=== PATIENT | female | born 1950 | race Caucasian/White ===

== ENCOUNTER 2017-05-19 10:11 | Emergency (ER) | payer MEDICARE, BC ==
[2017-05-19] MEDS ORDERED: Albuterol/Ipratropium 3.0-0.5 MG/3 ML Neb Soln NEB ONE (11:15)
[2017-05-19] MEDS ORDERED: predniSONE 20 MG Tab PO ONE (13:00)
--- NOTE | 2017-05-19 13:54 | EDM.PDOC ---
ED HPI GENERAL MEDICAL PROBLEM - General Chief Complaint: Respiratory Problem Stated Complaint: SOB/BREATHING ISSUES Time Seen by Provider: 05/19/17 11:06 Source of Information: Reports: Patient History Limitations: Reports: No Limitations - History of Present Illness INITIAL COMMENTS - FREE TEXT/NARRATIVE: This patient complains of increasing shortness of breath over the past few days. She has a history of asthma and has an albuterol nebulizer but it didn't seem to be helping. Later she noted that she was either out or about out of the albuterol. This morning her temp was up to 102.4. She's had a flu shot and Pneumovax. She denies any kind of heart disease but she has had some carotid disease. - Related Data Allergies Allergy/AdvReac Type Severity Reaction Status Date / Time No Known Allergies Allergy Verified 05/19/17 10:50 Home Meds: Home Meds Albuterol Sulfate [Ventolin Hfa] 2 puff IN Q4HR PRN 05/19/17 [History] Aspirin [Ecotrin] 81 mg PO DAILY 05/19/17 [History] Estradiol [Climara] 1 patch TOP ASDIRECTED 05/19/17 [History] Fluticasone Propionate [Flonase] 1 puff NASBOTH ASDIRECTED 05/19/17 [History] Ipratropium/Albuterol Sulfate [Iprat-Albut 0.5-3(2.5) mg/3 ml] 3 ml PO QID 05/19 [History] Lisinopril [Lisinopril] 10 mg PO DAILY 05/19/17 [History] Mirtazapine [Mirtazapine] 30 mg PO BEDTIME 05/19/17 [History] Montelukast Sodium [Montelukast Sodium] 10 mg PO BEDTIME 05/19/17 [History] Theophylline [Theophylline Anhydrous] 300 mg PO DAILY 05/19/17 [History] Venlafaxine HCl [Venlafaxine ER] 225 mg PO DAILY 05/19/17 [History] atorvaSTATin Calcium [Atorvastatin Calcium] 40 mg PO DAILY 05/19/17 [History] Past Medical History Cardiovascular History: Reports: Other (See Below) 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, 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, 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 History: Reports: Fracture Neurological History: Reports: CVA Oncologic (Cancer) History: Reports: Basal Cell Carcinoma, Malignant Melanoma - Past Surgical History HEENT Surgical History: Reports: Cataract Surgery Cardiovascular Surgical History: Reports: Carotid Stents GI Surgical History: Reports: Appendectomy Female Surgical History: Reports: Hysterectomy Musculoskeletal Surgical History: Reports: Other (See Below) Other Musculoskeletal Surgeries/Procedures:: titanium darnell placed in left leg Oncologic Surgical History: Reports: Biopsy of Breast Social & Family History - Tobacco Use Smoking Status *Q: Never Smoker - Caffeine Use Caffeine Use: Reports: Coffee - Alcohol Use Days Per Week of Alcohol Use: 2 Number of Drinks Per Day: 7 Total Drinks Per Week: 14 - Recreational Drug Use Recreational Drug Use: No ED ROS GENERAL - Review of Systems Review Of Systems: See Below Constitutional: Reports: Fever, Chills HEENT: Reports: No Symptoms Respiratory: Reports: Shortness of Breath, Wheezing, Cough Cardiovascular: Reports: No Symptoms Endocrine: Reports: No Symptoms GI/Abdominal: Reports: No Symptoms : Reports: No Symptoms Musculoskeletal: Reports: No Symptoms Skin: Reports: No Symptoms Neurological: Reports: No Symptoms Psychiatric: Reports: No Symptoms ED EXAM, GENERAL - Physical Exam Exam: See Below Exam Limited By: No Limitations General Appearance: Alert, WD/WN, Mild Distress Eye Exam: Bilateral Eye: Normal Inspection Throat/Mouth: Normal Inspection Head: Atraumatic Neck: Supple, Other (No stridor) Respiratory/Chest: Respiratory Distress (Mild respiratory distress. Wheezing in all lung bolton air movement pretty much preserved), Prolonged Expiration Cardiovascular: Regular Rate, Rhythm, No Murmur GI/Abdominal: Non-Tender Back Exam: Normal Inspection Extremities: Normal Inspection, No Pedal Edema Neurological: Alert, Oriented Psychiatric: Normal Affect Skin Exam: Warm, Dry Course - Vital Signs Last Recorded V/S: Last Vital Signs Temp 37.5 C 05/19/17 10:56 Pulse 112 H 05/19/17 10:56 Resp 22 H 05/19/17 10:56 BP 189/87 H 05/19/17 10:56 Pulse Ox 92 L 05/19/17 10:56 - Orders/Labs/Meds Orders: Active Orders 24 hr Category Date Time Status EKG Documentation Completion [RC] ASDIRECTED Care 05/19/17 11:15 Active RT Aerosol Therapy [RC] ASDIRECTED Care 05/19/17 11:15 Active Chest 2V [CR] Urgent Exams 05/19/17 11:14 Taken EKG 12 Lead [EK] Urgent Ther 05/19/17 11:14 Ordered Labs: Laboratory Tests 05/19/17 05/19/17 Range/Units 11:20 11:20 WBC 8.1 (4.5-11.0) K/uL RBC 4.87 (3.30-5.50) M/uL Hgb 14.3 (12.0-15.0) g/dL Hct 43.6 (36.0-48.0) % MCV 90 (80-98) fL MCH 29 (27-31) pg MCHC 33 (32-36) % Plt Count 239 (150-400) K/uL Neut % (Auto) 68 H (36-66) % Lymph % (Auto) 18 L (24-44) % [place] % (Auto) 14 H (2-6) % Eos % (Auto) 0 L (2-4) % Baso % (Auto) 0 (0-1) % Sodium 136 L (140-148) mmol/L Potassium 3.8 (3.6-5.2) mmol/L Chloride 97 L (100-108) mmol/L Carbon Dioxide 27 (21-32) mmol/L Anion Gap 15.8 H (5.0-14.0) mmol/L BUN 12 (7-18) mg/dL Creatinine 0.9 (0.6-1.0) mg/dL Est Cr Clr Drug Dosing 48.80 mL/min Estimated GFR (MDRD) > 60 (>60) Glucose 109 H (74-106) mg/dL Calcium 9.2 (8.5-10.1) mg/dL Total Bilirubin 0.4 (0.2-1.0) mg/dL AST 32 (15-37) U/L ALT 30 (12-78) U/L Alkaline Phosphatase 143 H (46-116) U/L Total Protein 8.0 (6.4-8.2) g/dL Albumin 4.0 (3.4-5.0) g/dL Globulin 4.0 H (2.3-3.5) g/dL Albumin/Globulin Ratio 1.0 L (1.2-2.2) Meds: Medications Discontinued Medications Generic Name Dose Route Start Last Admin Trade Name Freq PRN Reason Stop Dose Admin Albuterol/Ipratropium 3 ml 05/19/17 11:15 05/19/17 11:23 Duoneb 3.0-0.5 Mg/3 Ml NEB 05/19/17 11:16 3 ml ONETIME ONE Administration Prednisone 40 mg 05/19/17 13:00 05/19/17 13:18 Prednisone PO 05/19/17 13:01 40 mg ONETIME ONE Administration - Radiology Interpretation Free Text/Narrative:: Chest x-ray showed no evidence of infiltrate. Looks like an old healed rib fracture on the right. No old x-rays available - Re-Assessments/Exams Free Text/Narrative Re-Assessment/Exam: 05/19/17 18:35 This patient received a DuoNeb nebulizer treatment and prednisone 40 mg orally. Afterwards she felt much better and there was much less wheezing although she did had not completely cleared. Labs were done. Because we have had quite a bit of influenza in the area I think it is salas to go ahead and treat this lady with Tamiflu and also cover her with an antibiotic and oral steroids. Departure - Departure Time of Disposition: 13:52 Disposition: Home, Self-Care 01 Condition: Fair Clinical Impression: Asthmatic bronchitis with acute exacerbation - Discharge Information Instructions: Acute Bronchitis, [id number] Referrals: Lizett Gómez MD [Primary Care Provider] - Forms: ED Department Discharge Additional Instructions: You appear to have an asthma attack along with bronchitis. There is a small possibility that you could actually have influenza even though the flu test was negative and you've had a flu shot. Influenza is so serious that I'm going to put you on the flu medication just in case. Therefore take Tamiflu 75 mg twice daily for 5 days area Continue all of your usual medications. Take prednisone as directed. Also take the antibiotic Cipro 500 mg twice daily for 10 days. If you feel like you're getting worse than return to the ER at any time - My Orders Last 24 Hours: My Active Orders 05/19/17 11:14 Chest 2V [CR] Urgent EKG 12 Lead [EK] Urgent 05/19/17 11:15 EKG Documentation Completion [RC] ASDIRECTED RT Aerosol Therapy [RC] ASDIRECTED - Assessment/Plan Last 24 Hours: My Active Orders 05/19/17 11:14 Chest 2V [CR] Urgent EKG 12 Lead [EK] Urgent 05/19/17 11:15 EKG Documentation Completion [RC] ASDIRECTED RT Aerosol Therapy [RC] ASDIRECTED
--- NOTE | 2017-05-21 09:26 | CR ---
Heart size within normal limits. Old right rib fractures. Focal hazy nodular density right midlung zo ne. No pneumothorax or focal consolidation. Degenerative changes of the spine. Impression: 1. Focal hazy nodular density right midlung zone. Findings can indicate focal pneumonitis. Recommend radiographic follow-up short-term for clearing if this persist recommend CT noncontrast follow-up to exclude a pulmonary nodule.
== END 2017-05-19 14:15 | disposition home or self-care (01) ==
LOC: JP.ED 10:11
DX: J45.901 Unspecified asthma with (acute) exacerbation (principal); Z79.82 Long term (current) use of aspirin; Z79.899 Other long term (current) drug therapy
CPT/HCPCS: 36415; 71020; 80053; 85025; 87804; 93005; 94640; 99285; A9270; J7620; 93010; 99284

== ENCOUNTER 2017-11-25 06:15 | Day surgery (SDC) | payer MEDICARE, BC ==
[~2017-11-25 06:15] MED LIST: Lactated Ringers 1,000 ML IV SCH
[2017-11-25] MEDS ORDERED: Propofol 200 MG/20 ML SDV ONE ×2 (07:23→08:06)
[2017-11-25] MEDS ORDERED: fentaNYL 100 MCG/2 ML SDV ONE (07:23)
[2017-11-25] MEDS ORDERED: Midazolam 1 MG/ML 2 ML SDV ONE (07:23)
[2017-11-25] MEDS ORDERED: Ondansetron 4 MG/2 ML SDV ONE (07:24)
[2017-11-25] MEDS ORDERED: Lidocaine 1% 50 ML MDV ONE (07:52)
[2017-11-25] MEDS ORDERED: Bupivacaine 0.5%/EPINEPHrine 1:200,000 50 ML MDV ONE (07:52)
--- NOTE | 2017-11-25 12:16 | OR ---
DATE OF PROCEDURE: 11/25/2017 PREOPERATIVE DIAGNOSES: 1. Positive FIT test. 2. Prominent external hemorrhoid at 3 o'clock with 12 o'clock posterior. POSTOPERATIVE DIAGNOSES: 1. Pandiverticulosis. 2. Sessile right colon polyp. 3. Prominent external hemorrhoid at 3 o'clock with 12 o'clock posterior. PROCEDURE: Colonoscopy to the cecum with biopsy resection of sessile right colon polyp and tattoo of site, and hemorrhoidectomy. SURGEON: Warren Mcdaniels MD. ANESTHESIA: IV anesthesia with monitored anesthesia care. INDICATION: This 67-year-old white female is referred for a colonoscopy. She has a positive FIT test. She says her last colonoscopic exam was done 10 years ago. Also, she says she has a prominent hemorrhoid, which bothers her. She would like to have it excised. I counseled her for the procedure including risks, alternatives, and she gave her informed consent to proceed. DESCRIPTION OF PROCEDURE: The patient was placed in the left lateral decubitus position. IV anesthesia was administered by the Anesthesia Service. Time-out was held. A rectal exam was performed. The prominent hemorrhoid was seen at 3 o'clock with 12 o'clock being posterior. Otherwise, rectal exam was unremarkable. The flexible video Olympus colonoscope was introduced through her anus, up her rectum out her colon all the way to the cecum, en route, we saw multiple both right and left-sided diverticula. There was no bleeding or inflammation associated with any of them. Once the cecum was reached, the scope was slowly withdrawn examining the mucosa throughout. In the right colon, we saw a sessile polyp. This was removed with multiple bites of the biopsy forceps. We did tattooed this area with Sada ink. The scope was withdrawn further with no other neoplastic lesions seen. Multiple diverticula again were noted. The scope was retroflexed in the rectum with the distal rectum appearing unremarkable. The scope was then removed. Next, her anal and perianal area were prepped and draped in usual sterile fashion. Lidocaine 1% plain in a 50:50 mix with 0.5% Marcaine with epinephrine was infiltrated about the hemorrhoid. The hemorrhoid was grasped and elevated. A stitch was placed medially. The hemorrhoid was then excised, the stitch of 3-0 Chromic was then used to close the incision. A sterile dressing was applied. She tolerated the procedure well, and was brought to recovery room in good condition. Warren Mcdaniels MD /[id number]
== END 2017-11-25 10:00 | disposition home or self-care (01) ==
LOC: JP.SDS 06:15
PROVIDERS: ATTEND Surgery
DX: R19.5 Other fecal abnormalities (principal); D12.2 Benign neoplasm of ascending colon; K57.30 Diverticulosis of large intestine without perforation or abscess without bleeding; K64.4 Residual hemorrhoidal skin tags; K62.89 Other specified diseases of anus and rectum; I10 Essential (primary) hypertension; J45.909 Unspecified asthma, uncomplicated; E78.5 Hyperlipidemia, unspecified
CPT/HCPCS: 45380; 45381; 46999; J2250; J2405; J2704; J3010; J7120

== ENCOUNTER 2018-12-01 06:27 | Day surgery (SDC) | payer BC, MEDICARE ==
[2018-12-01] MEDS ORDERED: Midazolam 1 MG/ML 2 ML SDV ONE (07:10)
[2018-12-01] MEDS ORDERED: Propofol 200 MG/20 ML SDV ONE (07:10)
[2018-12-01] MEDS ORDERED: fentaNYL 100 MCG/2 ML SDV ONE (07:10)
[2018-12-01] MEDS ORDERED: Ondansetron 4 MG/2 ML SDV ONE (07:24)
[2018-12-01] MEDS ORDERED: Lactated Ringers 1,000 ML IV SCH (07:30)
--- NOTE | 2018-12-02 08:18 | OR ---
DATE OF PROCEDURE: 12/01/2018 PREOPERATIVE DIAGNOSES: History of sessile tubular adenoma, diverticulosis. POSTOPERATIVE DIAGNOSES: History of sessile tubular adenoma, diverticulosis. No evidence of recurrent sessile tubular adenoma. PROCEDURE: Colonoscopy to the cecum. SURGEON: Warren Mcdaniels MD ANESTHESIA: IV anesthesia with monitored anesthesia care. INDICATION: This 68-year-old white female is here for a colonoscopy. She underwent a colonoscopy last year with a sessile polyp seen in her right colon. It returned a sessile serrated adenoma. This was removed and the area was tattooed. Additionally, she was found to have diverticulosis. I counseled her for a colonoscopy with possible biopsy and/or polypectomy, including risks and alternatives, and she gave her informed consent to proceed. DESCRIPTION OF PROCEDURE: The patient was placed in the left lateral decubitus position. IV anesthesia was administered by the Anesthesia Service. Time-out was held. A rectal exam was performed, which was unremarkable. The flexible video Olympus colonoscope was introduced through her anus, up her rectum, and out her colon all way to the cecum. En route, we saw multiple both right and left-sided diverticula. Also, we saw the area that was tattooed. Once the cecum was reached, the scope was slowly withdrawn examining the mucosa throughout. We then again examined the area that was tattooed in the right colon, and there was no evidence of a persistent or recurrent polyp. The scope was withdrawn further with no other new lesions noted. The scope was retroflexed in the rectum with the distal rectum appearing unremarkable. The scope was straightened and removed. She tolerated the procedure well. Repeat colonoscopy in 5 years. Warren Mcdaniels MD /[id number]
== END 2018-12-01 09:00 | disposition home or self-care (01) ==
LOC: JP.SDS 06:27
PROVIDERS: ATTEND Surgery
DX: Z09 Encounter for follow-up examination after completed treatment for conditions other than malignant neoplasm (principal); K57.30 Diverticulosis of large intestine without perforation or abscess without bleeding; I10 Essential (primary) hypertension; E78.5 Hyperlipidemia, unspecified; J45.909 Unspecified asthma, uncomplicated; Z86.73 Personal history of transient ischemic attack (TIA), and cerebral infarction without residual deficits; Z86.010 Personal history of colon polyps
CPT/HCPCS: 45378; J2250; J2405; J2704; J3010; J7120

== ENCOUNTER 2019-02-16 08:27 | Emergency (ER) | payer MEDICARE ==
[2019-02-16] MEDS ORDERED: Albuterol/Ipratropium 3.0-0.5 MG/3 ML Neb Soln NEB ONE (08:57)
--- NOTE | 2019-02-16 09:03 | EDM.PDOC ---
ED HPI GENERAL MEDICAL PROBLEM - General Chief Complaint: Respiratory Problem Stated Complaint: ASTHMA, SOB Time Seen by Provider: 02/16/19 08:50 Source of Information: Reports: Patient, Old Records, Provider History Limitations: Reports: No Limitations - History of Present Illness INITIAL COMMENTS - FREE TEXT/NARRATIVE: 69 yo female with asthma was referred to the ER today from the clinic for apparent asthma refractory to outpatient therapy. Has been having increased SOB/ wheezing since she was at the [facility] and was exposed to barbecue smoke. Has been on steroids orally for the past 17 days, more recently on 40 mg daily. Last used her nebulizer last night. Used her MDI this morning of albuterol. Has not had a fever. Onset: Gradual Onset Date: 01/30/19 Duration: Week(s):, Constant Location: Reports: Chest Quality: Reports: Other (no pain) Severity: Moderate Improves with: Reports: Medication Worsens with: Reports: Other (smoke exposure) Context: Reports: Other (see HPI) Associated Symptoms: Reports: Cough, Shortness of Breath. 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) (albuterol MDI) - Related Data Allergies Allergy/AdvReac Type Severity Reaction Status Date / Time No Known Allergies Allergy Verified 02/16/19 08:43 Home Meds: Home Meds Albuterol Sulfate [Ventolin Hfa] 2 puff IN Q6HR PRN 05/19/17 [History] Aspirin [Ecotrin EC] 81 mg PO DAILY 05/19/17 [History] Fluticasone Propionate [Flonase] 1 puff NASBOTH ASDIRECTED 05/19/17 [History] Ipratropium/Albuterol Sulfate [Iprat-Albut 0.5-3(2.5) mg/3 ml] 3 ml PO QID 05/19 [History] Lisinopril 10 mg PO DAILY 05/19/17 [History] Mirtazapine 30 mg PO BEDTIME 05/19/17 [History] Montelukast Sodium 10 mg PO BEDTIME 05/19/17 [History] Theophylline [Theophylline Anhydrous] 300 mg PO DAILY 05/19/17 [History] Venlafaxine HCl [Venlafaxine ER] 150 mg PO DAILY 05/19/17 [History] atorvaSTATin Calcium [Atorvastatin Calcium] 40 mg PO DAILY 05/19/17 [History] Gabapentin [Neurontin] 300 mg PO BEDTIME 11/21/17 [History] cloNIDine [Catapres-TTS 1] 1 patch TOP WEEKLY 11/21/17 [History] Allopurinol [Zyloprim] 300 mg PO DAILY 11/28/18 [History] Cholecalciferol (Vitamin D3) [Decara] 50,000 unit PO WEEKLY 11/28/18 [History] Fluticasone/Salmeterol [Advair 250-50 Diskus] 1 puff IH BID 02/16/19 [History] predniSONE 40 mg PO DAILY 02/16/19 [History] Past Medical History HEENT History: Reports: Cataract Cardiovascular History: Reports: Other (See Below) Other Cardiovascular History: angioplasty 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, 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, 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: Reports: Fracture Neurological History: Reports: CVA Oncologic (Cancer) History: Reports: Basal Cell Carcinoma, Malignant Melanoma Dermatologic History: Reports: Melanoma - Infectious Disease History Infectious Disease History: Reports: Chicken Pox - Past Surgical History HEENT Surgical History: Reports: Cataract Surgery Cardiovascular Surgical History: Reports: Carotid Endarterectomy, Carotid Stents GI Surgical History: Reports: Appendectomy, Colonoscopy Female Surgical History: Reports: Hysterectomy Musculoskeletal Surgical History: Reports: Other (See Below) Other Musculoskeletal Surgeries/Procedures:: titanium darnell placed in left leg also left wrist Oncologic Surgical History: Reports: Biopsy of Breast Social & Family History - Tobacco Use Smoking Status *Q: Former Smoker Used Tobacco, but Quit: Yes Month/Year Tobacco Last Used: 25 years - Caffeine Use Caffeine Use: Reports: None - Recreational Drug Use Recreational Drug Use: No ED ROS GENERAL - Review of Systems Review Of Systems: See Below Constitutional: Reports: No Symptoms HEENT: Reports: No Symptoms Respiratory: Reports: Shortness of Breath, Cough. Denies: Wheezing, Sputum, Hemoptysis Cardiovascular: Reports: No Symptoms GI/Abdominal: Reports: No Symptoms : Reports: No Symptoms Musculoskeletal: Reports: No Symptoms Skin: Reports: No Symptoms Neurological: Reports: No Symptoms Psychiatric: Reports: No Symptoms ED EXAM, GENERAL - Physical Exam Exam: See Below Exam Limited By: No Limitations General Appearance: Alert, WD/WN, No Apparent Distress Eye Exam: Bilateral Eye: Normal Inspection Ears: Normal External Exam, Normal Canal, Hearing Grossly Normal, Normal TMs Ear Exam: Bilateral Ear: Auricle Normal, Canal Normal, TM normal Nose: Normal Inspection, Normal Mucosa, No Blood Throat/Mouth: Normal Inspection, Normal Lips, Normal Oropharynx, Normal Voice, No Airway Compromise Head: Atraumatic, Normocephalic Neck: Normal Inspection Respiratory/Chest: No Respiratory Distress, No Accessory Muscle Use, Wheezing Cardiovascular: Regular Rate, Rhythm, No Edema GI/Abdominal: Soft Back Exam: Normal Inspection Extremities: Normal Inspection, Normal Range of Motion, Non-Tender, No Pedal Edema Neurological: Alert, Oriented, CN II-XII Intact, Normal Cognition, No Motor/ Sensory Deficits Psychiatric: Normal Affect, Normal Mood Skin Exam: Warm, Dry, Intact, Normal Color, No Rash Course - Vital Signs Last Recorded V/S: Last Vital Signs Temp 35.7 C 02/16/19 08:59 Pulse 113 H 02/16/19 10:06 Resp 15 02/16/19 10:06 BP 191/98 H 02/16/19 10:06 Pulse Ox 95 02/16/19 10:06 - Orders/Labs/Meds Orders: Active Orders 24 hr Category Date Time Status RT Aerosol Therapy [RC] ASDIRECTED Care 02/16/19 08:57 Active Sodium Chloride 0.9% [Saline Flush] Med 02/16/19 10:12 Active 10 ml FLUSH ASDIRECTED PRN Saline Lock Insert [OM.PC] Routine Oth 02/16/19 10:12 Ordered Medication Orders Sodium Chloride (Saline Flush) 10 ml FLUSH ASDIRECTED PRN PRN Reason: Keep Vein Open Last Admin: 02/16/19 10:20 Dose: 10 ml Labs: Laboratory Tests 02/16/19 02/16/19 02/16/19 Range/Units 09:04 09:04 09:04 WBC 14.6 H (4.5-11.0) K/uL RBC 4.59 (3.30-5.50) M/uL Hgb 13.9 (12.0-15.0) g/dL Hct 43.4 (36.0-48.0) % MCV 95 (80-98) fL MCH 30 (27-31) pg MCHC 32 (32-36) % Plt Count 359 (150-400) K/uL D-Dimer, Quantitative < 100 (0.0-400.0) ng/mL Sodium 140 (140-148) mmol/L Potassium 3.9 (3.6-5.2) mmol/L Chloride 99 L (100-108) mmol/L Carbon Dioxide 30 (21-32) mmol/L Anion Gap 14.9 H (5.0-14.0) mmol/L BUN 17 (7-18) mg/dL Creatinine 1.1 H (0.6-1.0) mg/dL Est Cr Clr Drug Dosing TNP Estimated GFR (MDRD) 49 L (>60) Glucose 108 H (74-106) mg/dL Calcium 9.4 (8.5-10.1) mg/dL Troponin I < 0.017 (0.000-0.056) ng/mL C-Reactive Protein 0.05 (0.0-0.3) mg/dL Meds: Medications Generic Name Dose Route Start Last Admin Trade Name Freq PRN Reason Stop Dose Admin Sodium Chloride 10 ml 02/16/19 10:12 02/16/19 10:20 Saline Flush FLUSH 10 ml ASDIRECTED PRN Administration Keep Vein Open Discontinued Medications Generic Name Dose Route Start Last Admin Trade Name Freq PRN Reason Stop Dose Admin Albuterol/Ipratropium 3 ml 02/16/19 08:57 02/16/19 09:30 Duoneb 3.0-0.5 Mg/3 Ml NEB 02/16/19 08:58 3 ml ONETIME ONE Administration Methylprednisolone Sodium Succinate 125 mg 02/16/19 10:09 02/16/19 10:19 Solu-Medrol IVPUSH 02/16/19 10:10 125 mg ONETIME ONE Administration - Radiology Interpretation Free Text/Narrative:: CXR-mild hyperaeration Departure - Departure Time of Disposition: 10:35 Disposition: Home, Self-Care 01 Condition: Fair Clinical Impression: Asthma exacerbation Qualifiers: Asthma severity: moderate Asthma persistence: persistent Qualified Code(s): J45.41 - Moderate persistent asthma with (acute) exacerbation - Discharge Information *PRESCRIPTION DRUG MONITORING PROGRAM REVIEWED*: No *COPY OF PRESCRIPTION DRUG MONITORING REPORT IN PATIENT JOVANNA: No Instructions: Asthma, Adult Referrals: Lizett Gómez MD [Primary Care Provider] - Forms: ED Department Discharge Additional Instructions: Continue your usual medications. Take prednisone next tomorrow. Recheck in the clinic later this week, return to the ER if worse. - My Orders Last 24 Hours: My Active Orders 02/16/19 08:57 RT Aerosol Therapy [RC] ASDIRECTED 02/16/19 10:12 Sodium Chloride 0.9% [Saline Flush] 10 ml FLUSH ASDIRECTED PRN Saline Lock Insert [OM.PC] Routine - Assessment/Plan Last 24 Hours: My Active Orders 02/16/19 08:57 RT Aerosol Therapy [RC] ASDIRECTED 02/16/19 10:12 Sodium Chloride 0.9% [Saline Flush] 10 ml FLUSH ASDIRECTED PRN Saline Lock Insert [OM.PC] Routine
--- NOTE | 2019-02-16 09:45 | CR ---
CHEST: 2 view CLINICAL HISTORY:Wheezing, SOB COMPARISON:2017 FINDINGS: Heart size and pulmonary vascularity are normal. No infiltrate effusion or pneumothorax seen. There are some healed fractures of right mid ribs. Lungs are mildly hyperaerated. Impression: Mild hyperaeration No acute cardiopulmonary process
[2019-02-16] MEDS ORDERED: methylPREDNISolone Sodium Succinate 125 MG/2 ML SDV IVPUSH ONE (10:09)
[2019-02-16] MEDS ORDERED: Sodium Chloride 0.9% 10 ML Syringe FLUSH PRN (10:12)
== END 2019-02-16 10:46 | disposition home or self-care (01) ==
LOC: JP.ED 08:27
DX: J45.41 Moderate persistent asthma with (acute) exacerbation (principal); Z79.82 Long term (current) use of aspirin; Z79.899 Other long term (current) drug therapy; Z86.73 Personal history of transient ischemic attack (TIA), and cerebral infarction without residual deficits; Z87.891 Personal history of nicotine dependence
CPT/HCPCS: 36415; 71046; 80048; 84484; 85027; 85379; 86140; 94640; 96374; 99285; J2930; 99284; J7620-GY

== ENCOUNTER 2019-03-15 13:35 | Emergency (ER) | payer MEDICARE ==
--- NOTE | 2019-03-15 14:07 | EDM.PDOC ---
ED HPI GENERAL MEDICAL PROBLEM - General Chief Complaint: Skin Complaint Stated Complaint: left hand is swollen Time Seen by Provider: 03/15/19 13:44 Source of Information: Reports: Patient History Limitations: Reports: No Limitations - History of Present Illness INITIAL COMMENTS - FREE TEXT/NARRATIVE: Dayan is a 69 year old female presents to the ED today with c/o left hand swelling and pain for the last several days. Patient denies any hx of trauma or injury. OTC pain medications somewhat helpful, was seen in clinic on Saturday , had a test for gout which patient reports was negative. Patient is right hand dominant. Patient does have a metal plate in left wrist from years ago when she sustained a wrist fracture. Patient denies any recent repetitive movements. Patient denies any fever/chills. Onset: Gradual Left Hand Pain Score (Numeric/FACES): 7 - Related Data Allergies Allergy/AdvReac Type Severity Reaction Status Date / Time No Known Allergies Allergy Verified 03/15/19 14:00 Home Meds: Home Meds Albuterol Sulfate [Ventolin Hfa] 2 puff IN Q6HR PRN 05/19/17 [History] Aspirin [Ecotrin EC] 81 mg PO DAILY 05/19/17 [History] Fluticasone Propionate [Flonase] 1 puff NASBOTH ASDIRECTED 05/19/17 [History] Ipratropium/Albuterol Sulfate [Iprat-Albut 0.5-3(2.5) mg/3 ml] 3 ml PO QID 05/19 [History] Lisinopril 20 mg PO DAILY 05/19/17 [History] Mirtazapine 30 mg PO BEDTIME 05/19/17 [History] Montelukast Sodium 10 mg PO BEDTIME 05/19/17 [History] Theophylline [Theophylline Anhydrous] 300 mg PO BID 05/19/17 [History] Venlafaxine HCl [Venlafaxine ER] 225 mg PO DAILY 05/19/17 [History] atorvaSTATin Calcium [Atorvastatin Calcium] 40 mg PO DAILY 05/19/17 [History] Gabapentin [Neurontin] 300 mg PO BEDTIME 11/21/17 [History] cloNIDine [Catapres-TTS 1] 1 patch TOP WEEKLY 11/21/17 [History] Allopurinol [Zyloprim] 300 mg PO DAILY 11/28/18 [History] Budesonide [Pulmicort] 1 dose INH BID 03/15/19 [History] Omeprazole 1 tab PO DAILY 03/15/19 [History] Past Medical History HEENT History: Reports: Cataract Cardiovascular History: Reports: Other (See Below) Other Cardiovascular History: angioplasty 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, Bronchitis, 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: Musculoskeletal History: Reports: Fracture Neurological History: Reports: CVA Oncologic (Cancer) History: Reports: Basal Cell Carcinoma, Malignant Melanoma Dermatologic History: Reports: Melanoma - Infectious Disease History Infectious Disease History: Reports: Chicken Pox - Past Surgical History HEENT Surgical History: Reports: Cataract Surgery Cardiovascular Surgical History: Reports: Carotid Endarterectomy, Carotid Stents GI Surgical History: Reports: Appendectomy, Colonoscopy Female Surgical History: Reports: Hysterectomy Musculoskeletal Surgical History: Reports: Other (See Below) Other Musculoskeletal Surgeries/Procedures:: titanium darnell placed in left leg also left wrist Oncologic Surgical History: Reports: Biopsy of Breast Social & Family History - Tobacco Use Smoking Status *Q: Never Smoker - Caffeine Use Caffeine Use: Reports: None - Alcohol Use Days Per Week of Alcohol Use: 7 Number of Drinks Per Day: 3 Total Drinks Per Week: 21 - Recreational Drug Use Recreational Drug Use: No ED ROS GENERAL - Review of Systems Review Of Systems: ROS reveals no pertinent complaints other than HPI. ED EXAM, SKIN/RASH Exam: See Below Exam Limited By: No Limitations General Appearance: Alert, WD/WN, No Apparent Distress Nose: Normal Inspection Neck: Normal Inspection Respiratory/Chest: No Respiratory Distress Peripheral Pulses: 2+: Radial (L) Extremities: Normal Inspection, Other (left hand mildly swollen, dorsal aspect with tenderness to scaphoid region and positive Darrian test) Skin: Warm, Dry, Erythema (dorsal aspect of hand as well as wrist), Increased Warmth Course - Vital Signs Last Recorded V/S: Last Vital Signs Temp 37.7 C 03/15/19 14:12 Pulse 114 H 03/15/19 14:12 Resp 19 03/15/19 14:12 BP 143/77 H 03/15/19 14:12 Pulse Ox 97 03/15/19 14:12 Dayan is a 69 year old female, hx of gout, asthma, hypertension, high cholesterol presents to the ED today with c/o left hand and wrist pain for the last several days. Please refer to HPI and focused exam. Patient arrives mildly tachycardic and with low grade fever, given exam this could be cellulitic in nature, she recently had a normal uric acid but with her gout hx this is certainly on the differential. Patient's exam is consistent with de Quervain's tenosynovitis. Xray was obtained to rule out any occult fracture. Blood work obtained with low grade fever, white count returns normal. Patient given a dose of oxycodone here for pain. Basic panel returns with mild GAP, CRP elevated as well. Uric Acid normal. Xray negative for fracture. At this time I am going to put patient on a 5 day course of prednisone for tendonitis as well as a 7 day course of Keflex for cellulitis, patient was put in a velcro wrist with thumb splint and will follow up in clinic for re-evaluation at the end of the week. Patient can take Tylenol and Ibuprofen for pain, will discharge home with oxycodone as needed for severe pain. Narcotic safety and side effects discussed as well as reasons to return to the ED. Patient agreeable to plan of care and discharged in stable condition with her daughter driving. - Orders/Labs/Meds Labs: Laboratory Tests 03/15/19 03/15/19 03/15/19 Range/Units 14:32 14:32 14:32 WBC 8.4 (4.5-11.0) K/uL RBC 4.15 (3.30-5.50) M/uL Hgb 12.6 (12.0-15.0) g/dL Hct 39.1 (36.0-48.0) % MCV 94 (80-98) fL MCH 30 (27-31) pg MCHC 32 (32-36) % Plt Count 365 (150-400) K/uL Neut % (Auto) 61 (36-66) % Lymph % (Auto) 24 (24-44) % [place] % (Auto) 14 H (2-6) % Eos % (Auto) 2 (2-4) % Baso % (Auto) 0 (0-1) % Sodium 138 L (140-148) mmol/L Potassium 3.8 (3.6-5.2) mmol/L Chloride 101 (100-108) mmol/L Carbon Dioxide 26 (21-32) mmol/L Anion Gap 14.8 H (5.0-14.0) mmol/L BUN 13 (7-18) mg/dL Creatinine 1.0 (0.6-1.0) mg/dL Est Cr Clr Drug Dosing 40.81 mL/min Estimated GFR (MDRD) 55 L (>60) Glucose 135 H (74-106) mg/dL Uric Acid 4.3 (2.6-6.2) mg/dL Calcium 9.7 (8.5-10.1) mg/dL C-Reactive Protein 5.67 H (0.0-0.3) mg/dL Meds: Medications Discontinued Medications Generic Name Dose Route Start Last Admin Trade Name Freq PRN Reason Stop Dose Admin Oxycodone HCl 10 mg 03/15/19 14:19 03/15/19 14:58 Oxycodone PO 03/15/19 14:20 10 mg ONETIME ONE Administration Departure - Departure Time of Disposition: 15:30 Disposition: Home, Self-Care 01 Condition: Good Clinical Impression: Tendonitis Cellulitis Qualifiers: Site of cellulitis: extremity Site of cellulitis of extremity: upper extremity Laterality: left Qualified Code(s): L03.114 - Cellulitis of left upper limb - Discharge Information Instructions: Cellulitis, Adult, Tendinitis Referrals: Lizett Gómez MD [Primary Care Provider] - Forms: ED Department Discharge Additional Instructions: Ibuprofen/Tylenol for pain. Oxycodone for pain if needed. Do not drive if you take this. Start prednisone today and take as directed. Start Keflex today and take as directed. Follow up in clinic at the end of the week for re-check. Return here if symptoms worsen. Keep splint on throughout the week, elevate as much as possible.
[2019-03-15] MEDS ORDERED: oxyCODONE 5 MG Tab PO ONE (14:19)
--- NOTE | 2019-03-15 14:56 | CRLCR ---
INDICATION: Pain, swelling. TECHNIQUE: Three views. Comparison: None Findings: no fracture visible. No acute bony abnormality demonstrated. Metallic plate and screws within the distal dorsal radius. Osteopenia. Severe osteoarthritic narrowing at the STT joints. Radiocarpal alignment appears intact. Impression : No visualized acute fracture. Postoperative and chronic change as discussed. Dictated by Kraig Baires MD @ Mar 15 2019 2:50PM Signed by Dr. Kraig Baires @ Mar 15 2019 2:53PM
== END 2019-03-15 15:34 | disposition home or self-care (01) ==
LOC: JP.ED 13:35
DX: L03.114 Cellulitis of left upper limb (principal); M77.9 Enthesopathy, unspecified; J45.909 Unspecified asthma, uncomplicated; Z79.82 Long term (current) use of aspirin; Z79.899 Other long term (current) drug therapy
CPT/HCPCS: 36415; 73130; 80048; 84550; 85025; 86140; 99283; A9270

== ENCOUNTER 2020-01-15 20:04 | Emergency (ER) | payer MEDICARE ==
--- NOTE | 2020-01-15 20:19 | EDM.PDOC ---
ED HPI GENERAL MEDICAL PROBLEM - General Chief Complaint: Lower Extremity Injury/Pain Stated Complaint: FELL HURT RT ANKLE Time Seen by Provider: 01/15/20 20:15 Source of Information: Reports: Patient History Limitations: Reports: No Limitations - History of Present Illness INITIAL COMMENTS - FREE TEXT/NARRATIVE: 70-year-old female with a right ankle injury. 1 hour ago she got up, her right foot was asleep and he stepped wrong and heard a pop and now has significant bruising, swelling around the ankle with inability to bear weight. She is on prednisone currently. Onset: Sudden Duration: Hour(s): (1 hour ago) Location: Reports: Lower Extremity, Right Associated Symptoms: Reports: No Other Symptoms (No other injury, she does have chronic dyspnea) - Related Data Allergies Allergy/AdvReac Type Severity Reaction Status Date / Time No Known Allergies Allergy Verified 03/15/19 14:00 Home Meds: Home Meds Albuterol Sulfate [Ventolin Hfa] 2 puff IN Q6HR PRN 05/19/17 [History] Aspirin [Ecotrin EC] 81 mg PO DAILY 05/19/17 [History] Fluticasone Propionate [Flonase] 1 puff NASBOTH ASDIRECTED 05/19/17 [History] Ipratropium/Albuterol Sulfate [Iprat-Albut 0.5-3(2.5) mg/3 ml] 3 ml PO QID 05/19/17 [History] Lisinopril 20 mg PO DAILY 05/19/17 [History] Mirtazapine 30 mg PO BEDTIME 05/19/17 [History] Montelukast Sodium 10 mg PO BEDTIME 05/19/17 [History] Theophylline [Theophylline Anhydrous] 300 mg PO BID 05/19/17 [History] Venlafaxine HCl [Venlafaxine ER] 225 mg PO DAILY 05/19/17 [History] atorvaSTATin Calcium [Atorvastatin Calcium] 40 mg PO DAILY 05/19/17 [History] Gabapentin [Neurontin] 300 mg PO BEDTIME 11/21/17 [History] cloNIDine [Catapres-TTS 1] 1 mg PO BID 11/21/17 [History] allopurinoL [Zyloprim] 300 mg PO DAILY 11/28/18 [History] Budesonide [Pulmicort] 1 dose INH BID 03/15/19 [History] Omeprazole 1 tab PO DAILY 03/15/19 [History] Budesonide [Pulmicort] 2 ml INH BID 01/15/20 [History] predniSONE 20 mg PO ASDIRECTED 01/15/20 [History] Past Medical History HEENT History: Reports: Cataract Cardiovascular History: Reports: Other (See Below) Other Cardiovascular History: angioplasty 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, Bronchitis, 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 History: Reports: Fracture Neurological History: Reports: CVA Oncologic (Cancer) History: Reports: Basal Cell Carcinoma, Malignant Melanoma Dermatologic History: Reports: Melanoma - Infectious Disease History Infectious Disease History: Reports: Chicken Pox - Past Surgical History HEENT Surgical History: Reports: Cataract Surgery Cardiovascular Surgical History: Reports: Carotid Endarterectomy, Carotid Stents GI Surgical History: Reports: Appendectomy, Colonoscopy Female Surgical History: Reports: Hysterectomy Musculoskeletal Surgical History: Reports: Other (See Below) Other Musculoskeletal Surgeries/Procedures:: titanium darnell placed in left leg also left wrist Oncologic Surgical History: Reports: Biopsy of Breast Social & Family History - Caffeine Use Caffeine Use: Reports: None Review of Systems - Review of Systems Review Of Systems: See Below Constitutional: Denies: Fever Respiratory: Reports: Shortness of Breath (Shortness of breath is chronic with significant asthma) Cardiovascular: Denies: Chest Pain GI/Abdominal: Denies: Abdominal Pain, Vomiting Skin: Reports: Bruising (Bruising around the right ankle, she also tends to bruise easily) Psychiatric: Reports: No Symptoms ED EXAM, GENERAL - Physical Exam Exam: See Below Exam Limited By: No Limitations General Appearance: Alert, No Apparent Distress (Patient is uncomfortable but not acutely distressed) Head: Atraumatic Neck: Non-Tender Cardiovascular: Regular Rate, Rhythm Extremities: Other (Exam of the right lower extremity reveals a normal knee, she has exquisite tenderness to palpation around the ankle with significant swelling and ecchymosis around the medial and lateral ankle extending onto the top of the foot) Neurological: Alert, Oriented Skin Exam: Ecchymosis (There is significant ecchymosis around the right ankle) Course - Vital Signs Last Recorded V/S: Last Vital Signs Temp 98.6 F 01/15/20 20: Pulse 127 H 01/15/20 20: Resp 16 01/15/20 20: BP 179/75 H 01/15/20 20:21 Pulse Ox 96 01/15/20 20:21 - Orders/Labs/Meds Orders: Active Orders 24 hr Category Date Time Status Ankle Min 3V Rt [CR] Stat Exams 01/15/20 20:17 Taken DME for Discharge [COMM] Stat Oth 01/15/20 21:00 Ordered - Re-Assessments/Exams Free Text/Narrative Re-Assessment/Exam: 01/15/20 21:03 An x-ray of the foot show some osteoporosis but surprisingly no fracture. It is concerning that she has likely ligament disruption especially with her chronic steroid treatment. She will be placed in a cam walker and given crutches for the weekend, some extra pain control, but I think she should follow-up with Dr. Young next week for a podiatry consult. A formal consult was written. She will call Saturday for an appointment. Departure - Departure Time of Disposition: 21: Disposition: Home, Self-Care 01 Clinical Impression: Severe sprain of right ankle Qualifiers: Encounter type: initial encounter Qualified Code(s): S93.401A - Sprain of unspecified ligament of right ankle, initial encounter - Discharge Information Instructions: Ankle Sprain, [id number] Referrals: Vashti Potter PA-C [Primary Care Provider] - Forms: ED Department Discharge Care Plan Goals: Wear walking boot for support, elevate foot when able and take extra pain control if needed. Use crutches to help with ambulation, and call the clinic on Saturday to see Dr. Young for recheck. Sepsis Event Note (ED) - Focused Exam Vital Signs: Vital Signs Temp Pulse Resp BP Pulse Ox 01/15/20 20:21 98.6 F 127 H 16 179/75 H 96 01/15/20 20:16 98.6 F 127 H 16 179/75 H 96 - My Orders Last 24 Hours: My Active Orders 01/15/20 20:17 Ankle Min 3V Rt [CR] Stat 01/15/20 21:00 DME for Discharge [COMM] Stat - Assessment/Plan Last 24 Hours: My Active Orders 01/15/20 20:17 Ankle Min 3V Rt [CR] Stat 01/15/20 21:00 DME for Discharge [COMM] Stat
--- NOTE | 2020-01-18 09:35 | CR ---
Ankle Min 3V Rt CLINICAL HISTORY: Swelling no fracture FINDINGS: The soft tissues are swollen over the lateral malleolus. Ankle mortise is anatomic. There is a small ossific density overlying the distal medial aspect of the fibula. This may be a secondary ossification center. Small bony avulsion is not excluded. Impression: Lateral soft tissue swelling Small ossific density near the distal fibula could represent a small avulsion fracture
== END 2020-01-15 21:28 | disposition home or self-care (01) ==
LOC: JP.ED 20:04
DX: S93.401A Sprain of unspecified ligament of right ankle, initial encounter (principal); J45.909 Unspecified asthma, uncomplicated; Z79.899 Other long term (current) drug therapy; Z86.73 Personal history of transient ischemic attack (TIA), and cerebral infarction without residual deficits; X50.9XXA Other and unspecified overexertion or strenuous movements or postures, initial encounter
CPT/HCPCS: 73610-26-RT; 73610-RT; 99283; 99283-25

== ENCOUNTER 2021-06-02 08:54 | Day surgery (SDC) | payer MEDICARE ==
[~2021-06-02 08:54] MED LIST changes: -Lactated Ringers 1,000 ML IV SCH; +Lidocaine 1% 2 ML ONE; +Propofol 200 MG/20 ML SDV ONE; +fentaNYL 100 MCG/2 ML SDV ONE
[2021-06-02] MEDS ORDERED: Ondansetron 4 MG/2 ML SDV ONE (09:32)
[2021-06-02] MEDS ORDERED: Albuterol/Ipratropium 3.0-0.5 MG/3 ML Neb Soln NEB ONE (10:00)
[2021-06-02] MEDS ORDERED: Dextrose 5%-Lactated Ringers 1,000 ML IV SCH (10:00)
--- NOTE | 2021-06-04 12:30 | OR ---
DATE OF PROCEDURE: 06/02/2021 SURGEON: Iggy King MD PREOPERATIVE DIAGNOSIS: Mid epigastric pain. POSTOPERATIVE DIAGNOSIS: Mid epigastric pain associated with: 1. Small hiatal hernia with active gastroesophageal reflux disease. 2. Marked antral gastritis. PROCEDURE PERFORMED: Esophagogastroduodenoscopy with: 1. Biopsy of esophagogastric junction for histologic evaluation. 2. Biopsies of antrum for CLOtest. ANESTHESIA: IV sedation. INDICATION FOR PROCEDURE: This is a 71-year-old female presenting with some ongoing mid epigastric pain. She presently is on omeprazole 40 mg a day. The plan is to proceed with upper GI endoscopy with biopsies as indicated. Potential risks including bleeding and perforation were discussed, and the patient wishes to proceed. DETAILS OF PROCEDURE: The patient was taken to the operating room and placed in a left lateral decubitus position. IV sedation was administered after which the upper GI endoscope was passed orally through the length of the esophagus and the stomach with retroflexion view of the fundus, and thereafter, through the pyloric channel into the proximal duodenum. Findings included a normal hypopharynx, larynx, upper esophageal sphincter, and esophageal body. At the EG junction, a 1 to 2 cm hiatal hernia was present. There was a fairly active gastroesophageal reflux disease. No ulcerations or mass effect was seen, but the mucosa was friable and somewhat edematous. Within the stomach, there was marked antral gastritis with the texture being somewhat leathery and red. There were no erosions or ulcers noted. Pyloric channel and visualized portions of the duodenum were unremarkable. At this point, biopsies were obtained from the antrum and sent for CLOtest for H pylori. Multiple biopsies were then obtained from the esophagogastric junction and sent for histologic evaluation. Minimal bleeding from the biopsy sites was seen, and the procedure was then concluded. At this point, the plan will be to add Pepcid 40 mg at bedtime to her medication regimen. She takes the omeprazole in the morning and will be following up with Dr. Gonsalez in 3 to 4 weeks. We will contact the patient should the CLOtest come back positive to initiate a course of antibiotics. Iggy King MD /[id number]
== END 2021-06-02 13:46 | disposition home or self-care (01) ==
LOC: JP.SDS 08:54
PROVIDERS: ATTEND Surgery
DX: K21.9 Gastro-esophageal reflux disease without esophagitis (principal); K44.9 Diaphragmatic hernia without obstruction or gangrene; K29.60 Other gastritis without bleeding; I10 Essential (primary) hypertension; J44.9 Chronic obstructive pulmonary disease, unspecified; G47.33 Obstructive sleep apnea (adult) (pediatric); E66.9 Obesity, unspecified
CPT/HCPCS: 43239; 87081; J2405; J2704; J3010; J7121

== ENCOUNTER 2021-08-17 07:01 | Day surgery (SDC) | payer MEDICARE, OTHER ==
[~2021-08-17 07:01] MED LIST changes: -Lidocaine 1% 2 ML ONE; +Midazolam 1 MG/ML 2 ML SDV ONE
[2021-08-17] MEDS ORDERED: Ondansetron 4 MG/2 ML SDV ONE (08:05)
[2021-08-17] MEDS: Sodium Chloride 0.9% 1,000 ML IV SCH (08:17)
[2021-08-17] MEDS ORDERED: Propofol 200 MG/20 ML SDV ONE (08:46)
== END 2021-08-17 09:59 | disposition home or self-care (01) ==
LOC: JP.SDS 07:01
PROVIDERS: ATTEND Surgery
DX: Z12.11 Encounter for screening for malignant neoplasm of colon (principal); D12.2 Benign neoplasm of ascending colon; D12.4 Benign neoplasm of descending colon; K57.30 Diverticulosis of large intestine without perforation or abscess without bleeding; K64.8 Other hemorrhoids; J43.0 Unilateral pulmonary emphysema [MacLeod's syndrome]; I10 Essential (primary) hypertension; E78.5 Hyperlipidemia, unspecified; Z86.73 Personal history of transient ischemic attack (TIA), and cerebral infarction without residual deficits
CPT/HCPCS: 88305; J2250; J2405; J2704; J3010; J7030

== ENCOUNTER 2021-12-18 13:43 | Inpatient (IN) | payer MEDICARE ==
[2021-12-18] MEDS ORDERED: Morphine 2 MG/ML SYRINGE IVPUSH PRN (14:22)
[2021-12-18] MEDS ORDERED: Sodium Chloride 0.9% 10 ML Syringe FLUSH PRN (14:22)
[2021-12-18] MEDS ORDERED: Acetaminophen 325 MG Tab PO PRN (14:22)
[2021-12-18] MEDS ORDERED: LORazepam 2 MG/ML SDV IVPUSH PRN (14:22)
[2021-12-18] MEDS ORDERED: Magnesium Hydroxide 400 MG/5 ML Susp 30 ML Cup PO PRN (14:22)
[2021-12-18] MEDS ORDERED: Acetaminophen/HYDROcodone 325-5 MG Tab PO PRN (14:22)
[2021-12-18] MEDS ORDERED: Ondansetron 4 MG Tab.DIS PO PRN (14:22)
[2021-12-18] MEDS ORDERED: LORazepam 2 MG/ML SDV IV PRN (14:45)
[2021-12-18] MEDS: Albuterol/Ipratropium 3.0-0.5 MG/3 ML Neb Soln NEB SCH ×2 (15:07→20:57)
[2021-12-18 15:30] LABS: ESTIMATED GFR 78 mL/min (>60)
[2021-12-18] MEDS: methylPREDNISolone Sodium Succinate 40 MG/1 ML SDV IVPUSH SCH (16:03)
[2021-12-18] MEDS: Doxycycline 100 MG in Sodium Chloride 0.9% 100 ML IV SCH (16:32)
[2021-12-18] MEDS ORDERED: Codeine/guaiFENesin 10-100 MG/5 ML Syrup 5 ML Cup PO PRN (16:40)
[2021-12-18] MEDS ORDERED: Loratadine 10 MG Tab PO PRN (17:09)
[2021-12-18] MEDS ORDERED: Pseudoephedrine 30 MG Tab PO PRN (17:10)
[2021-12-18] MEDS: Magnesium Sulfate/Water 2 GM in Premix Bag 1 BAG IV SCH ×2 (18:13→23:36)
[2021-12-18] MEDS: guaiFENesin 600 MG Tab.ER PO SCH (20:45)
[2021-12-18] MEDS: cloNIDine 0.1 MG Tab PO SCH (20:45)
[2021-12-18] MEDS: Budesonide 0.5 MG/2 ML Neb Susp INH SCH (20:57)
[2021-12-18] MEDS: LORazepam 1 MG Tab PO PRN (20:57)
[2021-12-18] MEDS ORDERED: Montelukast 10 MG Tab PO SCH (21:00)
[2021-12-18] MEDS ORDERED: Gabapentin 300 MG Cap PO SCH (21:00)
[2021-12-18] MEDS ORDERED: Budesonide 0.25 MG/2 ML Neb Susp INH SCH (21:00)
[2021-12-18] MEDS ORDERED: Mirtazapine 15 MG Tab PO SCH (21:00)
[2021-12-18] MEDS ORDERED: Non-Formulary Medication 1 Each (Mirtazapine [Mirtazapine] 30 MG Tablet) PO SCH (21:00)
[2021-12-18] MEDS ORDERED: Famotidine 20 MG Tab PO SCH (21:00)
[2021-12-19] MEDS: LORazepam 1 MG Tab PO PRN ×3 (02:57→10:38)
[2021-12-19] MEDS: Doxycycline 100 MG in Sodium Chloride 0.9% 100 ML IV SCH (04:06)
[2021-12-19] MEDS: methylPREDNISolone Sodium Succinate 40 MG/1 ML SDV IVPUSH SCH (04:06)
[2021-12-19 05:16] LABS: ESTIMATED GFR 78 mL/min (>60)
[2021-12-19] MEDS: Magnesium Sulfate/Water 2 GM in Premix Bag 1 BAG IV SCH (05:37)
[2021-12-19] MEDS: Budesonide 0.5 MG/2 ML Neb Susp INH SCH (06:59)
[2021-12-19] MEDS: Albuterol/Ipratropium 3.0-0.5 MG/3 ML Neb Soln NEB SCH ×3 (06:59→13:45)
[2021-12-19] MEDS ORDERED: Levothyroxine 25 MCG Tab PO SCH (07:30)
[2021-12-19] MEDS ORDERED: Pantoprazole 40 MG Tab.CR PO SCH (07:30)
[2021-12-19] MEDS: cloNIDine 0.1 MG Tab PO SCH (08:26)
[2021-12-19] MEDS: guaiFENesin 600 MG Tab.ER PO SCH (08:26)
[2021-12-19] MEDS ORDERED: hydrALAZINE 10 MG Tab PO PRN (08:58)
[2021-12-19] MEDS ORDERED: Folic Acid 1 MG Tab PO SCH (09:00)
[2021-12-19] MEDS ORDERED: Famotidine 20 MG Tab PO SCH (09:00)
[2021-12-19] MEDS ORDERED: Enoxaparin 40 MG/0.4 ML Syringe SUBCUT SCH (09:00)
[2021-12-19] MEDS ORDERED: atorvaSTATin 20 MG Tab PO SCH (09:00)
[2021-12-19] MEDS ORDERED: Allopurinol 100 MG Tab PO SCH (09:00)
[2021-12-19] MEDS ORDERED: Thiamine 100 MG Tab PO SCH (09:00)
[2021-12-19] MEDS ORDERED: Lisinopril 20 MG Tab PO SCH (09:00)
[2021-12-19] MEDS ORDERED: Non-Formulary Medication 1 Each (Allopurinol [Zyloprim] 300 MG Tablet) PO SCH (09:00)
[2021-12-19] MEDS ORDERED: Aspirin 81 MG Tab.EC PO SCH (09:00)
[2021-12-19] MEDS ORDERED: Non-Formulary Medication 1 Each (Famotidine [Pepcid] 40 MG Tablet) PO SCH (09:00)
[2021-12-19] MEDS ORDERED: Non-Formulary Medication 1 Each (Omeprazole [Omeprazole] 40 MG Cap.Cr) PO SCH (09:00)
[2021-12-19] MEDS ORDERED: Venlafaxine 75 MG Cap.ER PO SCH (09:00)
[2021-12-19] MEDS ORDERED: Non-Formulary Medication 1 Each (Atorvastatin Calcium [Atorvastatin Calcium] 40 MG Tablet) PO SCH (09:00)
[2021-12-19] MEDS ORDERED: Metoprolol Succinate 25 MG Tab.ER PO SCH (10:45)
[2021-12-19] MEDS: Iopamidol 755 Mg/ML 100 ML Bottle IV SCH ×2 (11:16→12:31)
[2021-12-19] MEDS: Sodium Chloride 0.9% 50 ML IV SCH ×2 (11:16→12:30)
== END 2021-12-19 14:30 | disposition home or self-care (01) | DRG 189 ==
LOC: JP.MS 13:44
PROVIDERS: ADMIT Hospitalist; ATTEND Hospitalist
DX: J96.01 Acute respiratory failure with hypoxia (principal); J44.1 Chronic obstructive pulmonary disease with (acute) exacerbation; E83.42 Hypomagnesemia; I10 Essential (primary) hypertension; E78.5 Hyperlipidemia, unspecified; E03.9 Hypothyroidism, unspecified; Z20.822 Contact with and (suspected) exposure to COVID-19; M10.9 Gout, unspecified; F32.A Depression, unspecified; K21.9 Gastro-esophageal reflux disease without esophagitis; E78.00 Pure hypercholesterolemia, unspecified; F41.0 Panic disorder [episodic paroxysmal anxiety]; M19.90 Unspecified osteoarthritis, unspecified site; G47.30 Sleep apnea, unspecified; Z79.82 Long term (current) use of aspirin; Z79.890 Hormone replacement therapy; Z79.899 Other long term (current) drug therapy; Z87.891 Personal history of nicotine dependence; Z86.73 Personal history of transient ischemic attack (TIA), and cerebral infarction without residual deficits; Z98.49 Cataract extraction status, unspecified eye; Z72.89 Other problems related to lifestyle
CPT/HCPCS: 36415; 71046; 71046-26; 71275; 71275-26; 80053; 83735; 84443; 84484; 85025; 85027; 85651; 87040; 93005; 93010; 94640; 97161-GP; 99222; 99239; A9270-GY; J1650; J2920; J3475; J3490; J7620; Q9967; U0002

== ENCOUNTER 2022-10-08 09:00 | Emergency (ER) | payer MEDICARE ==
[2022-10-08] MEDS ORDERED: Ketorolac 30 MG/ML SDV IM ONE (09:53)
[2022-10-08] MEDS ORDERED: Ketorolac 30 MG/ML SDV IVPUSH ONE (10:05)
[2022-10-08] MEDS ORDERED: Sodium Chloride 0.9% 10 ML Syringe FLUSH PRN (10:07)
[2022-10-08] MEDS ORDERED: Gadoteridol 279.3 MG/ML 15 ML SDV IV SCH (11:00)
[2022-10-08] MEDS ORDERED: HYDROmorphone 1 MG/ML Syringe IVPUSH ONE (11:43)
== END 2022-10-08 15:05 | disposition home or self-care (01) ==
LOC: JP.ED 09:00
DX: M84.48XA Pathological fracture, other site, initial encounter for fracture (principal); M54.50 Low back pain, unspecified; G89.29 Other chronic pain; E78.00 Pure hypercholesterolemia, unspecified; I10 Essential (primary) hypertension; J44.9 Chronic obstructive pulmonary disease, unspecified; E03.9 Hypothyroidism, unspecified; Z86.73 Personal history of transient ischemic attack (TIA), and cerebral infarction without residual deficits; Z79.82 Long term (current) use of aspirin; Z79.899 Other long term (current) drug therapy
CPT/HCPCS: 72131; 72158; 76377; 96374; 96375; 99283; A9579; J1170; J1885; J3490

== ENCOUNTER 2023-04-08 13:06 | Emergency (ER) | payer MEDICARE, OTHER ==
[2023-04-08 13:51] LABS: BASOPHILS ABSOLUTE AUTO 0.06 K/uL (0.00-0.10); BASOPHILS PERCENT AUTO 0.4 % (0.1-1.3); EOSINOPHILS PERCENT AUTO 0.1 % (0.0-5.4); HEMATOCRIT 36.8 % (34.3-46.0); HEMOGLOBIN 11.6 g/dL (11.2-15.5); IMMATURE GRAN ABSOLUTE AUTO 0.24 K/uL (0.00-0.23); IMMATURE GRAN PERCENT AUTO 1.8 % (0.0-0.7); LYMPHOCYTES ABSOLUTE AUTO 2.67 K/uL (0.8-3.3); LYMPHOCYTES PERCENT AUTO 19.6 % (11.4-47.7); MEAN CORPUSCULAR HEMOGLOBIN 29.1 pg (31.6-35.5); MEAN CORPUSCULAR HGB CONC 31.5 g/dL (31.6-35.5); MEAN CORPUSCULAR VOLUME 92.2 fL (81.4-99.0); MONOCYTES ABSOLUTE AUTO 1.44 K/uL (0.20-0.90); MONOCYTES PERCENT AUTO 10.6 % (3.3-12.6); NEUTROPHILS ABSOLUTE AUTO 9.19 K/uL (1.0-7.6); NEUTROPHILS PERCENT AUTO 67.5 % (40.0-78.1); PLATELET COUNT,PLT 290 K/uL (130-375); RED BLOOD CELL COUNT 3.99 M/uL (3.77-5.24); WHITE BLOOD CELL COUNT,WBC 13.6 K/uL (3.2-11.0)
[2023-04-08 13:56] LABS: EOSINOPHILS ABSOLUTE AUTO 0.01 K/uL (0.00-0.40)
[2023-04-08 14:16] LABS: A/G RATIO 0.9 (1.2-2.2); ALANINE AMINOTRANSFERASE,ALT 40 U/L (12-78); ALBUMIN 3.1 g/dL (3.4-5.0); ALKALINE PHOSPHATASE 161 U/L (46-116); ANION GAP 9.7 mmol/L (5.0-14.0); ASPARTATE AMNIOTRANSFERASE,AST 32 U/L (15-37); BILIRUBIN TOTAL 0.3 mg/dL (0.2-1.0); BLOOD UREA NITROGEN,BUN 18 mg/dL (7-18); CALCIUM 8.1 mg/dL (8.5-10.1); CARBON DIOXIDE,CO2 28 mmol/L (21-32); CHLORIDE,CL 102 mmol/L (100-108); CREATININE 0.8 mg/dL (0.6-1.0); ESTIMATED GFR 77 mL/min (>60); GLUCOSE RANDOM 140 mg/dL (74-106); POTASSIUM,K 4.3 mmol/L (3.6-5.2); PROTEIN TOTAL,TP 6.4 g/dL (6.4-8.2); SODIUM,NA 140 mmol/L (140-148)
== END 2023-04-08 14:33 | disposition home or self-care (01) ==
LOC: JP.ED 13:06
DX: S06.0X9A Concussion with loss of consciousness of unspecified duration, initial encounter (principal); S61.412A Laceration without foreign body of left hand, initial encounter; S51.811A Laceration without foreign body of right forearm, initial encounter; S40.011A Contusion of right shoulder, initial encounter; I10 Essential (primary) hypertension; E78.00 Pure hypercholesterolemia, unspecified; J44.9 Chronic obstructive pulmonary disease, unspecified; M19.90 Unspecified osteoarthritis, unspecified site; E03.9 Hypothyroidism, unspecified; Z79.899 Other long term (current) drug therapy; Z79.82 Long term (current) use of aspirin; W10.9XXA Fall (on) (from) unspecified stairs and steps, initial encounter
CPT/HCPCS: 36415; 70450; 70450-26; 73030-26-RT; 73030-RT; 80053; 82140; 82550; 85025; 93010; 99284

== ENCOUNTER 2023-12-11 08:43 | Emergency (ER) | payer MEDICARE, OTHER ==
[2023-12-11 10:03] LABS: BASOPHILS ABSOLUTE AUTO 0.09 K/uL (0.00-0.10); BASOPHILS PERCENT AUTO 0.8 % (0.1-1.3); EOSINOPHILS ABSOLUTE AUTO 0.21 K/uL (0.00-0.40); EOSINOPHILS PERCENT AUTO 1.8 % (0.0-5.4); HEMATOCRIT 30.2 % (34.3-46.0); HEMOGLOBIN 10.4 g/dL (11.2-15.5); IMMATURE GRAN ABSOLUTE AUTO 0.06 K/uL (0.00-0.23); IMMATURE GRAN PERCENT AUTO 0.5 % (0.0-0.7); LYMPHOCYTES ABSOLUTE AUTO 3.35 K/uL (0.8-3.3); LYMPHOCYTES PERCENT AUTO 29.4 % (11.4-47.7); MEAN CORPUSCULAR HEMOGLOBIN 32.1 pg (31.6-35.5); MEAN CORPUSCULAR HGB CONC 34.4 g/dL (31.6-35.5); MEAN CORPUSCULAR VOLUME 93.2 fL (81.4-99.0); MONOCYTES ABSOLUTE AUTO 1.18 K/uL (0.20-0.90); MONOCYTES PERCENT AUTO 10.4 % (3.3-12.6); NEUTROPHILS ABSOLUTE AUTO 6.49 K/uL (1.0-7.6); NEUTROPHILS PERCENT AUTO 57.1 % (40.0-78.1); PLATELET COUNT,PLT 492 K/uL (130-375); RED BLOOD CELL COUNT 3.24 M/uL (3.77-5.24); WHITE BLOOD CELL COUNT,WBC 11.4 K/uL (3.2-11.0)
[2023-12-11 10:11] LABS: A/G RATIO 0.7 (1.2-2.2); ALANINE AMINOTRANSFERASE,ALT 21 U/L (12-78); ALBUMIN 2.4 g/dL (3.4-5.0); ALKALINE PHOSPHATASE 184 U/L (46-116); ASPARTATE AMNIOTRANSFERASE,AST 42 U/L (15-37); BILIRUBIN TOTAL 0.7 mg/dL (0.2-1.0); BLOOD UREA NITROGEN,BUN 33 mg/dL (7-18); CALCIUM 8.9 mg/dL (8.5-10.1); CARBON DIOXIDE,CO2 28 mmol/L (21-32); CHLORIDE,CL 97 mmol/L (100-108); CREATININE 2.7 mg/dL (0.6-1.0); EST CRCL DRUG DOSING (CG) 14.24 mL/min; ESTIMATED GFR 18 mL/min (>60); GLUCOSE RANDOM 108 mg/dL (74-106); PROTEIN TOTAL,TP 5.8 g/dL (6.4-8.2); SODIUM,NA 133 mmol/L (140-148)
[2023-12-11] MEDS: Ondansetron 4 MG/2 ML SDV IVPUSH ONE (10:44)
[2023-12-11] MEDS: Sodium Chloride 0.9% 1,000 ML IV SCH ×3 (10:46→13:30)
[2023-12-11 13:19] LABS: APPEARANCE,URINE SLIGHTLY CLOUDY (CLEAR); BACTERIA,URINE FEW; BILIRUBIN,URINE NEGATIVE (NEGATIVE); COLOR,URINE YELLOW (YELLOW); EPITHELIAL CELLS,URINE RARE; GLUCOSE,URINE NEGATIVE (NEGATIVE); KETONES,URINE NEGATIVE (NEGATIVE); LEUKOCYTE ESTERASE,URINE SMALL (NEGATIVE); MUCUS,URINE NOT SEEN; NITRITE,URINE NEGATIVE (NEGATIVE); OCCULT BLOOD,URINE NEGATIVE (NEGATIVE); PROTEIN,URINE NEGATIVE (NEGATIVE); RBC,URINE 0-5 (0-5); UROBILINOGEN,URINE 0.2 EU/dL (0.2-1.0)
[2023-12-11 13:20] LABS: AMORPHOUS SEDIMENT,URINE NOT SEEN
== END 2023-12-11 16:24 | disposition home or self-care (01) ==
LOC: JP.ED 08:43
DX: K21.00 Gastro-esophageal reflux disease with esophagitis, without bleeding (principal); I10 Essential (primary) hypertension; E78.00 Pure hypercholesterolemia, unspecified; J44.9 Chronic obstructive pulmonary disease, unspecified; E03.9 Hypothyroidism, unspecified; Z87.891 Personal history of nicotine dependence; Z90.49 Acquired absence of other specified parts of digestive tract; Z90.710 Acquired absence of both cervix and uterus; Z79.899 Other long term (current) drug therapy; Z79.890 Hormone replacement therapy; Z79.51 Long term (current) use of inhaled steroids; Z79.82 Long term (current) use of aspirin
CPT/HCPCS: 36415; 74176; 80053; 80307; 81001; 83690; 85025; 96361; 96374; 99284; J2405; J7030

== ENCOUNTER 2023-12-16 14:24 | Emergency (ER) | payer MEDICARE ==
[2023-12-16 18:41] LABS: BASOPHILS ABSOLUTE AUTO 0.09 K/uL (0.00-0.10); BASOPHILS PERCENT AUTO 0.7 % (0.1-1.3); EOSINOPHILS PERCENT AUTO 1.6 % (0.0-5.4); HEMATOCRIT 32.4 % (34.3-46.0); HEMOGLOBIN 10.8 g/dL (11.2-15.5); IMMATURE GRAN ABSOLUTE AUTO 0.05 K/uL (0.00-0.23); IMMATURE GRAN PERCENT AUTO 0.4 % (0.0-0.7); LYMPHOCYTES ABSOLUTE AUTO 3.13 K/uL (0.8-3.3); LYMPHOCYTES PERCENT AUTO 24.4 % (11.4-47.7); MEAN CORPUSCULAR HEMOGLOBIN 31.8 pg (31.6-35.5); MEAN CORPUSCULAR HGB CONC 33.3 g/dL (31.6-35.5); MEAN CORPUSCULAR VOLUME 95.3 fL (81.4-99.0); MONOCYTES ABSOLUTE AUTO 1.35 K/uL (0.20-0.90); MONOCYTES PERCENT AUTO 10.5 % (3.3-12.6); NEUTROPHILS ABSOLUTE AUTO 8.03 K/uL (1.0-7.6); NEUTROPHILS PERCENT AUTO 62.4 % (40.0-78.1); PLATELET COUNT,PLT 441 K/uL (130-375); WHITE BLOOD CELL COUNT,WBC 12.9 K/uL (3.2-11.0)
[2023-12-16 18:52] LABS: APPEARANCE,URINE CLEAR (CLEAR); BILIRUBIN,URINE SMALL (NEGATIVE); COLOR,URINE YELLOW (YELLOW); GLUCOSE,URINE NEGATIVE (NEGATIVE); KETONES,URINE TRACE mg/dL (NEGATIVE); LEUKOCYTE ESTERASE,URINE NEGATIVE (NEGATIVE); NITRITE,URINE NEGATIVE (NEGATIVE); OCCULT BLOOD,URINE NEGATIVE (NEGATIVE); PROTEIN,URINE NEGATIVE (NEGATIVE)
[2023-12-16] MEDS: Sodium Chloride 0.9% 1,000 ML IV SCH (18:55)
[2023-12-16 18:59] LABS: AMORPHOUS SEDIMENT,URINE MODERATE; BACTERIA,URINE NOT SEEN; EPITHELIAL CELLS,URINE RARE; MUCUS,URINE RARE; RBC,URINE 0-5 (0-5); WBC,URINE 0-5 (0-5)
[2023-12-16 19:01] LABS: ALANINE AMINOTRANSFERASE,ALT 15 U/L (12-78); ALBUMIN 2.4 g/dL (3.4-5.0); ALKALINE PHOSPHATASE 162 U/L (46-116); ASPARTATE AMNIOTRANSFERASE,AST 46 U/L (15-37); BILIRUBIN TOTAL 0.5 mg/dL (0.2-1.0); BLOOD UREA NITROGEN,BUN 25 mg/dL (7-18); CALCIUM 9.1 mg/dL (8.5-10.1); CARBON DIOXIDE,CO2 28 mmol/L (21-32); CHLORIDE,CL 101 mmol/L (100-108); CREATININE 1.9 mg/dL (0.6-1.0); EST CRCL DRUG DOSING (CG) 20.23 mL/min; ESTIMATED GFR 27 mL/min (>60); GLUCOSE RANDOM 109 mg/dL (74-106); POTASSIUM,K 3.6 mmol/L (3.6-5.2); PROTEIN TOTAL,TP 6.1 g/dL (6.4-8.2); SODIUM,NA 140 mmol/L (140-148)
[2023-12-16 19:07] LABS: A/G RATIO 0.7 (1.2-2.2)
== END 2023-12-16 20:15 | disposition home or self-care (01) ==
LOC: JP.ED 14:24
DX: R11.0 Nausea (principal); I10 Essential (primary) hypertension; E78.00 Pure hypercholesterolemia, unspecified; J45.909 Unspecified asthma, uncomplicated; E03.9 Hypothyroidism, unspecified; Z90.49 Acquired absence of other specified parts of digestive tract; Z90.710 Acquired absence of both cervix and uterus; Z79.899 Other long term (current) drug therapy
CPT/HCPCS: 36415; 80053; 81001; 85025; 96360; 99283; J7030

== ENCOUNTER 2024-01-01 08:50 | Day surgery (SDC) | payer MEDICARE ==
[~2024-01-01 08:50] MED LIST changes: -Midazolam 1 MG/ML 2 ML SDV ONE; -fentaNYL 100 MCG/2 ML SDV ONE; +fentaNYL 50 MCG/ML SDV ONE
[2024-01-01] MEDS ORDERED: Ondansetron 4 MG/2 ML SDV ONE (09:30)
[2024-01-01] MEDS: Sodium Chloride 0.9% 1,000 ML IV SCH (09:38)
[2024-01-01] MEDS: Ibuprofen 400 MG Tab PO ONE (11:45)
== END 2024-01-01 12:33 | disposition home or self-care (01) ==
LOC: JP.SDS 08:50
PROVIDERS: ATTEND Surgery
DX: K22.89 Other specified disease of esophagus (principal); R10.13 Epigastric pain; S41.119A Laceration without foreign body of unspecified upper arm, initial encounter; J44.89 Other specified chronic obstructive pulmonary disease; E78.5 Hyperlipidemia, unspecified
CPT/HCPCS: 88305; A9270-GY; J2405; J2704; J3010; J7030